=== PATIENT | male | born 1930 | race Caucasian/White ===

== ENCOUNTER 2016-12-13 12:12 | Emergency (ER) | payer OTHER ==
[2016-12-13 11:41] LABS: BASOPHILS 0.5 %; BASOPHILS ABSOLUTE 0.02 10/3/uL (0.0-0.16); EOSINOPHILS 1.8 %; EOSINOPHILS ABSOLUTE 0.07 10/3/uL (0.0-0.53); ER CBC TAT 0 Hrs 05 Mins; HEMOGLOBIN 10.8 g/dL (13.6-17.8); IMMATURE GRANULOCYTES 0.3 %; IMMATURE GRANULOCYTES ABSOLUTE 0.01 10/3/uL (0.0-0.11); LYMPHOCYTES 18.9 %; LYMPHOCYTES ABSOLUTE 0.74 10/3/uL (0.67-4.30); MEAN CORPUS HGB CONC 33.8 g/dL (32.0-36.0); MEAN CORPUSCULAR HEMOGLOB 34.1 pg (26.0-34.0); MEAN CORPUSCULAR VOLUME 100.9 fL (80-100); MEAN PLATELET VOLUME 9.6 fL (9.2-13.0); MONOCYTES ABSOLUTE 0.39 10/3/uL (0.21-1.20); NEUTROPHILS 68.5 %; NEUTROPHILS ABSOLUTE 2.68 10/3/uL (2.02-8.40); RBC DISTRIBUTION WIDTH 13.8 % (12.0-16.0); RED CELL COUNT 3.17 10/6/uL (4.7-6.1); WHITE BLOOD CELLS 3.9 10/3/uL (4.5-10.5)
[2016-12-13 11:43] LABS: MANUAL DIFF NO %; PLATELET COUNT 134 10/3/uL (150-400)
[2016-12-13 11:49] LABS: INTERNATIONAL NORMAL RATI 1.2 UNITS (-); PROTIME (NOT ORD) 14.6 SEC (12.0-14.5)
[2016-12-13 11:50] LABS: PARTIAL THROMBO TIME 33.9 SEC (22.5-37.2)
[2016-12-13 11:56] LABS: ALBUMIN 3.2 G/DL (3.5-5.0); CHLORIDE, SERUM 107 MMOL/L (96-112); CO2 (CARBON DIOXIDE) 33 MMOL/L (24-34); CREATININE 1.34 MG/DL (0.70-1.30); GFR AFRICAN AMERICAN 56 ML/MIN (>=60); GFR NON AFRICAN AMERICAN 48 ML/MIN (>=60); GLUCOSE, SERUM 84 MG/DL (60-99); SGOT(AST) 35 U/L (5-40); SGPT(ALT) 28 U/L (5-65); SODIUM, SERUM 144 MMOL/L (135-148); TOTAL BILIRUBIN 0.8 MG/DL (0-1.2); TOTAL PROTEIN 6.2 G/DL (6.0-8.5)
[2016-12-13 11:57] LABS: BUN (BLOOD UREA NITROGEN) 22 MG/DL (6-23)
[2016-12-13 11:58] LABS: A/G RATIO 1.1 (0.7-1.9); ALKALINE PHOSPHATASE 74 U/L (45-117); CALCIUM, SERUM 10.3 MG/DL (8.5-10.4)
[~2016-12-13 12:12] MED LIST: APPLE CIDER VINEGAR TOP; CIP5 PO; HYDROGEN PEROXIDE TOP; HYZAAR1 TAB PO; MULTIVIT/MIN PO; PROBIOTIC PO; PT DENIES HOME MEDS; VARIOUS SUPPLEMENTS; VITAMIN D31000 UNIT PO; VITE PO
[2016-12-13 13:00] LABS: TROPONIN I <0.02 NG/ML (<0.05)
[2016-12-13 13:52] LABS: ASCORBIC ACID (UR NOT ORDER) 40 (NEG); BILIRUBIN, URINE NEGATIVE (NEG); ER URINALYSIS TAT 0 Hrs 08 Mins; KETONE, URINE TRACE MG/DL (NEG); LEUKOCYTE ESTERASE(NOT OR NEG (NEG); NITRITE (URINE) NEG (NEG); WBC (NOT ORDERED) (RFLEX) 2 (0-5)
== END 2016-12-13 15:37 | disposition home or self-care (01) ==
LOC: ER 12:12
PROVIDERS: Physician Assistant
DX: R60.0 Localized edema (principal); Z79.899 Other long term (current) drug therapy
CPT/HCPCS: 70450; 71020; 73060-RT; 73502-RT; 80053; 81001; 84484; 85025; 85610; 85730; 93005; 96372; 99284